=== PATIENT | female | born 1985 | race Caucasian/White ===

== ENCOUNTER 2019-02-17 08:32 | Emergency (ER) | payer MEDICAID ==
[~2019-02-17] VITALS: Ht 165.1 cm; Wt 112.5 kg
[2019-02-17 08:36] VITALS: Ht 165.1 cm; Wt 112.5 kg
[2019-02-17 10:05] VITALS: BP 153/96
== END 2019-02-17 10:03 | disposition home or self-care (01) ==
LOC: ED 08:32
DX: M54.42 Lumbago with sciatica, left side (principal); F17.210 Nicotine dependence, cigarettes, uncomplicated; E11.9 Type 2 diabetes mellitus without complications; I10 Essential (primary) hypertension; Z90.49 Acquired absence of other specified parts of digestive tract; X50.9XXA Other and unspecified overexertion or strenuous movements or postures, initial encounter; Y93.89 Activity, other specified; Y92.89 Other specified places as the place of occurrence of the external cause; Y99.8 Other external cause status
CPT/HCPCS: J1885

== ENCOUNTER 2019-03-04 11:58 | Emergency (ER) | payer MEDICAID ==
[~2019-03-04] VITALS: Ht 165.1 cm; Wt 109.3 kg
[2019-03-04 12:05] VITALS: Ht 165.1 cm; Wt 109.3 kg
[2019-03-04 13:12] VITALS: BP 157/85
== END 2019-03-04 13:12 | disposition home or self-care (01) ==
LOC: ED 11:58
DX: J20.8 Acute bronchitis due to other specified organisms (principal); F17.210 Nicotine dependence, cigarettes, uncomplicated; I10 Essential (primary) hypertension; E11.9 Type 2 diabetes mellitus without complications; Z79.84 Long term (current) use of oral hypoglycemic drugs
CPT/HCPCS: 99406

== ENCOUNTER 2019-04-06 20:11 | Emergency (ER) | payer OTHER ==
[~2019-04-06] VITALS: Ht 165.1 cm; Wt 112.9 kg
[2019-04-06 20:16] VITALS: BP 159/100; Ht 165.1 cm; Wt 112.9 kg
== END 2019-04-06 22:09 | disposition home or self-care (01) ==
LOC: ED 20:11
DX: J40 Bronchitis, not specified as acute or chronic (principal); F17.210 Nicotine dependence, cigarettes, uncomplicated; I10 Essential (primary) hypertension; E11.9 Type 2 diabetes mellitus without complications; Z98.890 Other specified postprocedural states
CPT/HCPCS: 99406; J7512; J7613; J7644

== ENCOUNTER 2019-07-07 16:51 | Emergency (ER) | payer OTHER ==
[~2019-07-07] VITALS: Ht 167.6 cm; Wt 107.0 kg
[2019-07-07 17:02] VITALS: Ht 167.6 cm; Wt 107.0 kg
[2019-07-07 18:21] LABS: CALCIUM 8.8 mg/dL (8.5-10.1); CARBON DIOXIDE 22.2 mmol/L (21-32); CHLORIDE SERUM 93 mmol/L (98-107); GFR1 > 60 mL/min; POTASSIUM SERUM 4.3 mmol/L (3.5-5.1); SODIUM SERUM 130 mmol/L (136-145)
[2019-07-07 21:08] VITALS: BP 162/108
[2019-07-25 13:56] LABS: GLUCOSE SERUM 596 mg/dL (74-106)
== END 2019-07-07 21:08 | disposition home or self-care (01) ==
LOC: ED 16:51
PROVIDERS: Specialist
DX: E11.65 Type 2 diabetes mellitus with hyperglycemia (principal); N76.0 Acute vaginitis; E66.01 Morbid (severe) obesity due to excess calories; I10 Essential (primary) hypertension; Z76.0 Encounter for issue of repeat prescription
CPT/HCPCS: 36600; 82962; J1815; J7030

== ENCOUNTER 2020-06-09 14:17 | Emergency (ER) | payer OTHER ==
[~2020-06-09] VITALS: Ht 167.6 cm; Wt 105.7 kg
[2020-06-09 14:33] VITALS: BP 173/110; Ht 167.6 cm; Wt 105.7 kg
== END 2020-06-09 15:41 | disposition home or self-care (01) ==
LOC: ED 14:17
DX: M25.512 Pain in left shoulder (principal); I10 Essential (primary) hypertension; E11.9 Type 2 diabetes mellitus without complications
CPT/HCPCS: J1885; Q0092